=== PATIENT | female | born 1975 | race Caucasian/White ===

== ENCOUNTER 2020-07-23 14:14 | Emergency (ER) | payer MEDICAID ==
[2020-07-23] MEDS ORDERED: SODIUM CHLORIDE 0.9% 1,000 ML IV STA (14:46)
--- NOTE | 2020-07-23 14:55 | ED Physician Documentation ---
History of Present Illness - Stated complaint Stated Complaint: HIGH BLOOD SUGAR - Chief complaint Chief Complaint: General - History obtained from History obtained from: Patient - Additonal information Additional information: 44-year-old woman has been a type I diabetic since the age of 14. Only complications are neuropathy. She moved from [place] recently and does not have a doctor here yet. Has an appointment in 2 weeks. Her insulin pump ran out about 2 weeks ago and since then has been using short acting insulin only and because of that has had labile blood sugars with ketonuria and feels like she needs a long-acting insulin as well. Around noon today her blood sugar was in the 400s but in triage it was 198. She feels dehydrated. No other acute complaints. Review of Systems Ten Systems: 10 systems reviewed and negative Constitutional: reports: Fatigue : reports: Frequency PD PAST MEDICAL HISTORY - Present Medications Home Medications: Ambulatory Orders Medication Instructions Recorded Confirmed Acetaminophen [Tylenol] 500 mg PO TID 07/23/20 07/23/20 Alcohol Antiseptic Pads [Alcohol 1 each TP QID #120 med..pad 07/23/20 Swabs] Atorvastatin [Lipitor] 10 mg ORAL DAILY PM 07/23/20 07/23/20 Celecoxib [Celebrex] 200 mg PO BID 07/23/20 07/23/20 Cyclobenzaprine [Flexeril] 10 mg PO TID PRN 07/23/20 07/23/20 Gabapentin [Neurontin] 800 mg PO TID 07/23/20 07/23/20 Insulin Glargine [Lantus Solostar] 10 unit SQ BID #3 pen 07/23/20 Insulin Lispro 1 - 10 unit SQ ACHS #3 vial 07/23/20 Insulin Lispro 1 - 10 unit SQ TIDWM 07/23/20 07/23/20 Levothyroxine Sodium [Synthroid] 75 mcg PO DAILY 07/23/20 07/23/20 Losartan [Cozaar] 50 mg PO DAILY 07/23/20 07/23/20 Sumatriptan Succinate [Imitrex] 100 mg PO DAILY PRN 07/23/20 07/23/20 Syringe and Needle,Insulin,1Ml 1 each MC QID #120 disp.syrin 07/23/20 [Insulin Syringe] Tizanidine HCl [Zanaflex] 4 mg PO Q6HR PRN 07/23/20 07/23/20 - Allergies Allergies/Adverse Reactions: Allergies Allergy/AdvReac Type Severity Reaction Status Date / Time No Known Drug Allergies Allergy Verified 07/23/20 14:44 PD ED PE NORMAL - Vitals Vital signs reviewed: Yes - General General: Alert and oriented X 3, No acute distress - HEENT HEENT: PERRL, EOMI - Neck Neck: Supple, no meningeal sign - Derm Derm: Normal color, Warm and dry - Neuro Neuro: Alert and oriented X 3, No motor deficit, No sensory deficit, Normal speech Results - Vitals Vitals: Vital Signs - 24 hr 07/23/20 07/23/20 07/23/20 14:35 15:05 15:30 Temperature 36.9 C 36.4 C L Heart Rate 104 H 89 91 Respiratory 18 19 20 Rate Blood Pressure 115/95 H 110/61 122/78 O2 Saturation 96 98 100 Oxygen O2 Source Room air - Labs Labs: Laboratory Tests 07/23/20 07/23/20 07/23/20 14:45 14:58 14:58 WBC 7.6 RBC 3.80 L Hgb 12.2 Hct 36.4 L MCV 95.8 MCH 32.1 H MCHC 33.5 RDW 14.1 Plt Count 326 MPV 9.4 Neut # (Auto) 5.0 Lymph # (Auto) 2.2 [place] # (Auto) 0.3 Eos # (Auto) 0.1 Baso # (Auto) 0.0 Absolute Nucleated RBC 0.00 Nucleated RBC % 0.0 VBG pH VBG pCO2 VBG pO2 VBG HCO3 VBG Total CO2 VBG O2 Saturation VBG Base Excess Sodium 135 Potassium 3.8 Chloride 99 L Carbon Dioxide 22 Anion Gap 14.0 H BUN 10 Creatinine 0.7 Estimated GFR (MDRD) 90 Glucose 198 H POC Whole Bld Glucose 198 H Calcium 9.3 Total Bilirubin 0.6 AST 22 ALT 17 Alkaline Phosphatase 59 Total Protein 7.3 Albumin 3.9 Globulin 3.4 Albumin/Globulin Ratio 1.1 Lipase 17 L Urine Color Urine Clarity Urine pH Ur Specific [place] Urine Protein Urine Glucose (UA) Urine Ketones Urine Occult Blood Urine Nitrite Urine Bilirubin Urine Urobilinogen Ur Leukocyte Esterase Urine RBC Urine WBC Ur Squamous Epith Cells Urine Bacteria Ur Microscopic Review Urine Culture Comments Urine HCG, Qual Serum Ketones NEGATIVE 07/23/20 07/23/20 15:20 15:57 WBC RBC Hgb Hct MCV MCH MCHC RDW Plt Count MPV Neut # (Auto) Lymph # (Auto) [place] # (Auto) Eos # (Auto) Baso # (Auto) Absolute Nucleated RBC Nucleated RBC % VBG pH 7.343 VBG pCO2 40.3 L VBG pO2 29.1 VBG HCO3 21.4 L VBG Total CO2 22.6 L VBG O2 Saturation 59.7 L VBG Base Excess -4.0 L Sodium Potassium Chloride Carbon Dioxide Anion Gap BUN Creatinine Estimated GFR (MDRD) Glucose POC Whole Bld Glucose Calcium Total Bilirubin AST ALT Alkaline Phosphatase Total Protein Albumin Globulin Albumin/Globulin Ratio Lipase Urine Color YELLOW Urine Clarity CLEAR Urine pH 5.5 Ur Specific [place] <=1.005 Urine Protein NEGATIVE Urine Glucose (UA) 500 H Urine Ketones TRACE Urine Occult Blood LARGE H Urine Nitrite NEGATIVE Urine Bilirubin NEGATIVE Urine Urobilinogen 0.2 (NORMAL) Ur Leukocyte Esterase NEGATIVE Urine RBC 0-5 Urine WBC 0-3 Ur Squamous Epith Cells MANY Squamous H Urine Bacteria Few Ur Microscopic Review INDICATED Urine Culture Comments NOT INDICATED Urine HCG, Qual NEGATIVE Serum Ketones PD MEDICAL DECISION MAKING - ED course ED course: 44-year-old woman with known type 1 diabetes presents with hyperglycemia due to not having long-acting insulin. She was administered some IV fluids here. No evidence of DKA. She is prescribed Lantus. She already has short acting insulin. Departure - Departure Disposition: 01 Home, Self Care Clinical Impression: Uncontrolled diabetes mellitus Qualifiers: Diabetes mellitus type: type 1 Glycemic state: with hyperglycemia Qualified Code(s): E10.65 - Type 1 diabetes mellitus with hyperglycemia Condition: Good Record reviewed to determine appropriate education?: Yes Instructions: ED Hyperglycemia Diabetic Prescriptions: Alcohol Antiseptic Pads [Alcohol Swabs] 1 each TP QID #120 med..pad Insulin Lispro 1 - 10 unit SQ ACHS #3 vial Syringe and Needle,Insulin,1Ml [Insulin Syringe] 1 each MC QID #120 disp.syrin Insulin Glargine [Lantus Solostar] 10 unit SQ BID #3 pen Comments: No evidence of diabetic ketoacidosis today, start the Lantus at a low dose but you can increase it if you remain hyperglycemic. Return if worsening. Follow- up with your primary care physician in a couple of weeks as scheduled.
[2020-07-23 15:10] LABS: BASOPHILS % (AUTO) 0.4 %; EOSINOPHILS # (AUTO) 0.1 10^3/uL (0.0-0.7); EOSINOPHILS % (AUTO) 1.1 %; HGB - HEMOGLOBIN 12.2 g/dL (12.0-16.0); LYMPHOCYTES # (AUTO) 2.2 10^3/uL (1.5-3.5); LYMPHOCYTES % (AUTO) 28.8 %; MEAN CORPUSCULAR HEMOGLOBIN 32.1 pg (27.0-31.0); MEAN CORPUSCULAR HGB CONC 33.5 g/dL (32.0-36.0); MEAN CORPUSCULAR VOLUME 95.8 fL (81.0-99.0); MEAN PLATELET VOLUME 9.4 fL (7.9-10.8); MONOCYTES # (AUTO) 0.3 10^3/uL (0.0-1.0); MONOCYTES % (AUTO) 3.9 %; NEUTROPHILS % (AUTO) 65.5 %; PLT - PLATELET COUNT 326 10^3/uL (130-450); RED CELL DISTRIBUTION WIDTH 14.1 % (12.0-15.0); WHITE BLOOD COUNT 7.6 x10^3/uL (4.8-10.8)
[2020-07-23 15:22] LABS: ALBUMIN 3.9 g/dL (3.2-5.5); ALBUMIN/GLOBULIN RATIO 1.1 (1.0-2.2); ALKALINE PHOSPHATASE 59 IU/L (42-121); ALT ALANINE AMINOTRANSFERASE 17 IU/L (10-60); AST ASPARTATE AMINOTRANSFERASE 22 IU/L (10-42); BILIRUBIN,TOTAL 0.6 mg/dL (0.2-1.0); BUN - BLOOD UREA NITROGEN 10 mg/dL (6-20); CALCIUM 9.3 mg/dL (8.5-10.3); CARBON DIOXIDE - CO2 22 mmol/L (21-32); CHLORIDE 99 mmol/L (101-111); CREATININE 0.7 mg/dL (0.4-1.0); GLUCOSE 198 mg/dL (70-100); LIPASE 17 U/L (22-51); SODIUM 135 mmol/L (135-145); TOTAL PROTEIN 7.3 g/dL (6.7-8.2)
[2020-07-23 15:23] LABS: KETONES, SERUM (ACETEST) NEGATIVE (NEGATIVE)
[2020-07-23 15:29] LABS: BILIRUBIN,URINE NEGATIVE (NEGATIVE); GLUCOSE, URINE (UA) 500 mg/dL (NEGATIVE); KETONES,URINE (UA) TRACE mg/dL (NEGATIVE); LEUKOCYTE ESTERASE, URINE NEGATIVE (NEGATIVE); NITRITE,URINE NEGATIVE (NEGATIVE); OCCULT BLOOD,URINE LARGE (NEGATIVE); PH,URINE 5.5 PH (5.0-7.5); PROTEIN,URINE NEGATIVE (NEGATIVE); UROBILINOGEN,URINE 0.2 (NORMAL) E.U./dL (NORMAL)
[2020-07-23 15:30] LABS: CLARITY,URINE CLEAR (CLEAR)
[2020-07-23 15:31] LABS: HCG UR QUAL NEGATIVE
[2020-07-23 15:38] LABS: BACTERIA,URINE Few /HPF (None Seen); RBC,URINE 0-5 /HPF (0-5); SQUAMOUS EPITHELIAL CELL,UR MANY Squamous (<= Few)
[2020-07-23 16:03] LABS: VBG PCO2 40.3 mmHg (41-51); VBG PH 7.343 (7.31-7.41)
[2020-07-23 16:04] LABS: VBG PO2 29.1 mmHg (25-47); VBG TOTAL CO2 22.6 mmol/L (24-29)
[2020-07-23 16:16] VITALS: BP 119/61
== END 2020-07-23 16:17 | disposition home or self-care (01) ==
LOC: ED 14:14
DX: E10.40 Type 1 diabetes mellitus with diabetic neuropathy, unspecified (principal); E10.65 Type 1 diabetes mellitus with hyperglycemia; Z79.4 Long term (current) use of insulin
CPT/HCPCS: 36415; 80053; 81001; 81003; 81025; 82009; 82803; 83690; 85025; 87086; 96360; 99283

== ENCOUNTER 2020-09-22 08:43 | Emergency (ER) | payer MEDICAID ==
[2020-09-22] MEDS ORDERED: SODIUM CHLORIDE 0.9% 1,000 ML IV STA (09:12)
[2020-09-22 09:40] LABS: BASOPHILS % (AUTO) 0.4 %; EOSINOPHILS # (AUTO) 0.1 10^3/uL (0.0-0.7); EOSINOPHILS % (AUTO) 2.1 %; HGB - HEMOGLOBIN 11.7 g/dL (12.0-16.0); LYMPHOCYTES # (AUTO) 1.5 10^3/uL (1.5-3.5); LYMPHOCYTES % (AUTO) 30.3 %; MEAN CORPUSCULAR HGB CONC 32.7 g/dL (32.0-36.0); MEAN CORPUSCULAR VOLUME 94.7 fL (81.0-99.0); MEAN PLATELET VOLUME 9.5 fL (7.9-10.8); MONOCYTES # (AUTO) 0.2 10^3/uL (0.0-1.0); MONOCYTES % (AUTO) 4.1 %; NEUTROPHILS % (AUTO) 62.7 %; PLT - PLATELET COUNT 314 10^3/uL (130-450); RED BLOOD COUNT 3.78 10^6/uL (4.20-5.40); RED CELL DISTRIBUTION WIDTH 13.2 % (12.0-15.0); WHITE BLOOD COUNT 4.9 x10^3/uL (4.8-10.8)
[2020-09-22 09:54] LABS: ALBUMIN 4.1 g/dL (3.2-5.5); ALBUMIN/GLOBULIN RATIO 1.4 (1.0-2.2); BILIRUBIN,TOTAL 0.5 mg/dL (0.2-1.0); CALCIUM 9.2 mg/dL (8.5-10.3); CREATININE 0.7 mg/dL (0.4-1.0)
[2020-09-22] MEDS ORDERED: INSULIN REGULAR HUMAN 100 UNIT/1 ML 10 ML MDV SUBQ STA (10:59)
[2020-09-22] MEDS ORDERED: ACETAMINOPHEN 325 MG TABLET PO STA ×2 (11:00→11:41)
[2020-09-22 11:23] LABS: HEMOGLOBIN A1c% 7.4 % (4.27-6.07)
--- NOTE | 2020-09-22 11:44 | ED Physician Documentation ---
History of Present Illness - Stated complaint Stated Complaint: HIGH BLOOD SUGAR - Chief complaint Chief Complaint: General - History obtained from History obtained from: Patient - Additonal information Additional information: Patient comes the ED complaining of her blood sugar being elevated. She states that she has been off of her insulin pump for about the last for 5 months and is waiting for insurance to kick in so she get back on it. She states she takes both Lantus and regular insulin, with her Lantus being a twice daily dose and her regular insulin being done as a sliding scale, based on calculation of carbs eaten. She states that she was did have trouble with blood sugar control, which was why she was on the pump. She states that continuous infusion through the pump work much better than her spot dosing now. Patient denies any recent illness. She states she has felt nauseated with her sugar being high. She states her measurement at home was in the 300s. She states her fasting blood sugar is often around 200, though yesterday morning, it was 56. The patient just saw her primary care physician this past week and has seen her a couple of other times since going off the insulin pump. She states her doctor has not made any specific recommendations or changes to her insulin regimen. She does not know what her last hemoglobin A1c value was. No fever or chills. No cough. No other complaints at this time. Review of Systems Ten Systems: 10 systems reviewed and negative Constitutional: reports: Reviewed and negative Eyes: reports: Reviewed and negative Ears: reports: Reviewed and negative Nose: reports: Reviewed and negative Throat: reports: Reviewed and negative Cardiac: reports: Reviewed and negative Respiratory: reports: Reviewed and negative GI: reports: Nausea, Reviewed and negative : reports: Reviewed and negative Skin: reports: Reviewed and negative Musculoskeletal: reports: Reviewed and negative Neurologic: reports: Reviewed and negative Psychiatric: reports: Reviewed and negative Endocrine: reports: Reviewed and negative Immunocompromised: reports: Reviewed and negative PD PAST MEDICAL HISTORY - Past Medical History Cardiovascular: Hypertension Respiratory: None Neuro: Migraines, Peripheral neuropathy Endocrine/Autoimmune: Type 1 diabetes, HyPOthyroidism GI: None [employer] BOARDS: None : None HEENT: None Psych: Depression, Anxiety, ADD/ADHD Musculoskeletal: Osteoarthritis, Fibromyalgia, Rheumatoid arthritis, Chronic back pain, Other Derm: None Other Past Medical History: neuropathy - Past Surgical History Ortho: Spine surgery, Other - Present Medications Home Medications: Ambulatory Orders Medication Instructions Recorded Confirmed Acetaminophen [Tylenol] 1,000 mg PO TID 07/23/20 09/22/20 Alcohol Antiseptic Pads [Alcohol 1 each TP QID #120 med..pad 07/23/20 09/22/20 Swabs] Atorvastatin [Lipitor] 10 mg ORAL DAILY PM 07/23/20 09/22/20 Celecoxib [Celebrex] 200 mg PO BID 07/23/20 09/22/20 Cyclobenzaprine [Flexeril] 10 mg PO TID PRN 07/23/20 09/22/20 Gabapentin [Neurontin] 800 mg PO TID 07/23/20 09/22/20 Insulin Glargine [Lantus Solostar] 10 unit SQ BID #3 pen 07/23/20 09/22/20 Insulin Lispro 1 - 10 unit SQ ACHS #3 vial 07/23/20 09/22/20 Insulin Lispro 1 - 10 unit SQ TIDWM 07/23/20 09/22/20 Levothyroxine Sodium [Synthroid] 75 mcg PO DAILY 07/23/20 09/22/20 Losartan [Cozaar] 50 mg PO DAILY 07/23/20 09/22/20 Pen Needle, Diabetic, Safety 1 each MC BID #120 dis.needle 07/23/20 09/22/20 [Safety Pen Needle] Sumatriptan Succinate [Imitrex] 100 mg PO DAILY PRN 07/23/20 09/22/20 Syringe and Needle,Insulin,1Ml 1 each MC QID #120 disp.syrin 07/23/20 09/22/20 [Insulin Syringe] Tizanidine HCl [Zanaflex] 4 mg PO Q6HR PRN 07/23/20 09/22/20 Ondansetron Odt [Zofran] 4 mg TL Q6H PRN #10 tablet 09/22/20 - Allergies Allergies/Adverse Reactions: Allergies Allergy/AdvReac Type Severity Reaction Status Date / Time No Known Drug Allergies Allergy Verified 09/22/20 09:16 - Social History Does the pt smoke?: No Smoking Status: Never smoker Does the pt drink ETOH?: Yes Does the pt have substance abuse?: Yes - Immunizations Immunizations are current?: Yes - POLST Patient has POLST: No PD ED PE NORMAL - Vitals Vital signs reviewed: Yes - General General: Alert and oriented X 3, No acute distress - HEENT HEENT: Atraumatic, PERRL, EOMI, Moist mucous membranes - Neck Neck: Supple, no meningeal sign - Cardiac Cardiac: RRR, No murmur, Strong equal pulses - Respiratory Respiratory: No respiratory distress, Clear bilaterally - Abdomen Abdomen: Soft, Non tender, Non distended - Derm Derm: Normal color, Warm and dry, No rash - Extremities Extremities: No deformity, No edema, No calf tenderness / cord - Neuro Neuro: Alert and oriented X 3 - Psych Psych: Normal mood, Normal affect Results - Vitals Vitals: Oxygen O2 Source Room air - Labs Labs: Laboratory Tests 09/22/20 09/22/20 09/22/20 09:15 09:25 09:25 WBC 4.9 RBC 3.78 L Hgb 11.7 L Hct 35.8 L MCV 94.7 MCH 31.0 MCHC 32.7 RDW 13.2 Plt Count 314 MPV 9.5 Neut # (Auto) 3.0 Lymph # (Auto) 1.5 [place] # (Auto) 0.2 Eos # (Auto) 0.1 Baso # (Auto) 0.0 Absolute Nucleated RBC 0.00 Nucleated RBC % 0.0 Sodium 139 Potassium 4.3 Chloride 99 L Carbon Dioxide 26 Anion Gap 14.0 H BUN 8 Creatinine 0.7 Estimated GFR (MDRD) 90 Glucose 343 H POC Whole Bld Glucose 312 H Estimat Average Glucose Hemoglobin A1c % Calcium 9.2 Total Bilirubin 0.5 AST 28 ALT 17 Alkaline Phosphatase 38 L Total Protein 7.0 Albumin 4.1 Globulin 2.9 Albumin/Globulin Ratio 1.4 Lipase 17 L 09/22/20 09/22/20 09:25 12:06 WBC RBC Hgb Hct MCV MCH MCHC RDW Plt Count MPV Neut # (Auto) Lymph # (Auto) [place] # (Auto) Eos # (Auto) Baso # (Auto) Absolute Nucleated RBC Nucleated RBC % Sodium Potassium Chloride Carbon Dioxide Anion Gap BUN Creatinine Estimated GFR (MDRD) Glucose POC Whole Bld Glucose 339 H Estimat Average Glucose 166 H Hemoglobin A1c % 7.4 H Calcium Total Bilirubin AST ALT Alkaline Phosphatase Total Protein Albumin Globulin Albumin/Globulin Ratio Lipase PD MEDICAL DECISION MAKING - ED course Complexity details: reviewed old records, reviewed results, re-evaluated patient, considered differential, d/w patient ED course: The patient was found to have an elevated blood sugar of 343 on laboratory values, and hemoglobin A1c of 7.4, which correlated to an average blood sugar of 166. The patient had mentioned that she would like to be on a set sliding scale and not based on carbohydrates. I did print and give her an insulin sliding scale to use at home. She was given a subcutaneous dose of regular insulin 12 units here, and was beginning to improve with repeat blood sugar 30 minutes later. I felt the patient was stable for discharge home. I discussed with her that most likely, the insulin pump will be the most helpful for her, but that she should follow-up with her primary care physician within the next few weeks to make sure that the new insulin sliding scale is working better for her. If not, her primary care physician will need to discuss with her whether she should have an increase in her Lantus. I am reluctant to increase the Lantus here, due to the patient's hypoglycemic fasting blood sugar yesterday. We have discussed home management of symptoms, as well as the usual indications for return. Departure - Departure Disposition: 01 Home, Self Care Clinical Impression: Poorly controlled diabetes mellitus Condition: Stable Instructions: ED Hyperglycemia Diabetic Prescriptions: Ondansetron Odt [Zofran] 4 mg TL Q6H PRN #10 tablet PRN Reason: Nausea / Vomiting Comments: Your hemoglobin A1c is 7.4, which actually correlates with an average blood sugar of 166. You may use a set insulin sliding scale to help determine how much insulin to take when your blood sugar is elevated. You should be more cautious about this before bed, however, to ensure you do not drop too low at night. Please see the attached print out. Please continue to follow-up with your primary care physician to get back on the insulin pump, as this is probably the best option for diabetes control for you. Forms: Activity restrictions Discharge Date/Time: 09/22/20 12:30
[2020-09-22 12:01] VITALS: BP 126/75
== END 2020-09-22 12:30 | disposition home or self-care (01) ==
LOC: ED 08:43
DX: E10.65 Type 1 diabetes mellitus with hyperglycemia (principal); E10.42 Type 1 diabetes mellitus with diabetic polyneuropathy; Z79.4 Long term (current) use of insulin; I10 Essential (primary) hypertension
CPT/HCPCS: 36415; 80053; 83036; 83690; 85025; 96360; 99283; 99284; A9270; J1815

== ENCOUNTER 2021-01-31 06:08 | Emergency (ER) | payer BC, MEDICAID ==
[2021-01-31 06:22] VITALS: BP 154/96
[2021-01-31] MEDS ORDERED: CYCLOBENZAPRINE 10 MG TABLET PO STA (06:54)
--- NOTE | 2021-01-31 06:57 | ED Physician Documentation ---
PD HPI HEAD INJURY - Stated complaint Stated Complaint: HEADACHE/ITCHY - Chief complaint Chief Complaint: Neuro - History obtained from History obtained from: Patient - Additional information Additional information: 45-year-old woman with history of type 1 diabetes presents Requesting Flexeril prescription. She states, "I think I am going through withdrawal". Patient has been having frontal headache radiating to the left shoulder and neck, shooting, throbbing, aching, associated with generalized body aches, foot cramping, nausea, full body itchiness, and generalized malaise since last Saturday. She states that she ran out of her Flexeril and she cannot get into see her primary Dr. Hopper. When she calls the phone just has a busy signal. Patient denies fever/chills at home, abdominal pain, leg swelling. Review of Systems Constitutional: reports: Myalgias, Fatigue Cardiac: denies: Chest pain / pressure Respiratory: denies: Dyspnea GI: reports: Nausea PD PAST MEDICAL HISTORY - Past Medical History Past Medical History: Yes Cardiovascular: Hypertension Respiratory: None Neuro: Migraines, Peripheral neuropathy Endocrine/Autoimmune: Type 1 diabetes, HyPOthyroidism GI: None TRIAL EXAMINER: None : None HEENT: None Psych: Depression, Anxiety, ADD/ADHD Musculoskeletal: Osteoarthritis, Fibromyalgia, Rheumatoid arthritis, Chronic back pain, Other Derm: None - Past Surgical History Past Surgical History: Yes Ortho: Spine surgery, Other - Present Medications Home Medications: Ambulatory Orders Medication Instructions Recorded Confirmed Acetaminophen [Tylenol] 1,000 mg PO TID 07/23/20 09/22/20 Alcohol Antiseptic Pads [Alcohol 1 each TP QID #120 med..pad 07/23/20 09/22/20 Swabs] Atorvastatin [Lipitor] 10 mg ORAL DAILY PM 07/23/20 09/22/20 Celecoxib [Celebrex] 200 mg PO BID 07/23/20 09/22/20 Cyclobenzaprine [Flexeril] 10 mg PO TID PRN 07/23/20 09/22/20 Gabapentin [Neurontin] 800 mg PO TID 07/23/20 09/22/20 Insulin Glargine [Lantus Solostar] 10 unit SQ BID #3 pen 07/23/20 09/22/20 Insulin Lispro 1 - 10 unit SQ ACHS #3 vial 07/23/20 09/22/20 Insulin Lispro 1 - 10 unit SQ TIDWM 07/23/20 09/22/20 Levothyroxine Sodium [Synthroid] 75 mcg PO DAILY 07/23/20 09/22/20 Losartan [Cozaar] 50 mg PO DAILY 07/23/20 09/22/20 Pen Needle, Diabetic, Safety 1 each MC BID #120 dis.needle 07/23/20 09/22/20 [Safety Pen Needle] Sumatriptan Succinate [Imitrex] 100 mg PO DAILY PRN 07/23/20 09/22/20 Syringe and Needle,Insulin,1Ml 1 each MC QID #120 disp.syrin 07/23/20 09/22/20 [Insulin Syringe] Tizanidine HCl [Zanaflex] 4 mg PO Q6HR PRN 07/23/20 09/22/20 Ondansetron Odt [Zofran] 4 mg TL Q6H PRN #10 tablet 09/22/20 Cyclobenzaprine [Flexeril] 10 mg PO TID PRN #10 tablet 01/31/21 - Allergies Allergies/Adverse Reactions: Allergies Allergy/AdvReac Type Severity Reaction Status Date / Time No Known Drug Allergies Allergy Verified 01/31/21 06:27 - Social History Does the pt smoke?: No Smoking Status: Never smoker Does the pt drink ETOH?: Yes Does the pt have substance abuse?: Yes - Immunizations Immunizations are current?: Yes - POLST Patient has POLST: No PD ED PE NORMAL - Vitals Vital signs reviewed: Yes - General General: Alert and oriented X 3, No acute distress, Well developed/nourished - HEENT HEENT: Atraumatic, PERRL, EOMI - Neck Neck: Supple, no meningeal sign - Cardiac Cardiac: RRR - Respiratory Respiratory: No respiratory distress, Clear bilaterally - Abdomen Abdomen: Non tender, Non distended - Derm Derm: Normal color, Warm and dry - Extremities Extremities: No deformity - Neuro Neuro: Alert and oriented X 3 - Psych Psych: Normal mood, Normal affect Results - Vitals Vitals: Vital Signs - 24 hr 01/31/21 06:19 Temperature 36.5 C Heart Rate 96 Respiratory 18 Rate Blood Pressure 154/96 H O2 Saturation 100 Oxygen O2 Source Room air PD MEDICAL DECISION MAKING - ED course ED course: Patient declined headache treatment here in the emergency department, requesting to go home and rest. Education given about need for primary care follow-up in future for prescriptions for muscle relaxers. Since she is unable to get in with her primary doctor, I have provided a list of alternatives as well as [facility].The patient's son will drive her home.Return precautions given. Departure - Departure Disposition: Home, Self Care Clinical Impression: Body aches, Headache Condition: Good Instructions: Cyclobenzaprine tablets Follow-Up: MARIBELL SWANSON MD [Physician No Access] - Heather Velasco PA [Physician No Access] - Steven Weber MD [Physician No Access] - KEVIN NUNN PA-C [Provider Admit Priv/Credential] - Prescriptions: Cyclobenzaprine [Flexeril] 10 mg PO TID PRN #10 tablet PRN Reason: Spasms Comments: You are seen in the emergency department for medication refill and for headache. Please follow-up with your primary doctor this week. If you cannot get into see Dr. Hopper, you can follow-up at [facility]. I also am providing a couple of other options for primary doctors on your discharge paperwork. Return to the emergency department if you develop any new or worsening symptoms or have other concerns. [facility] [address] [facility] [address].
== END 2021-01-31 07:09 | disposition home or self-care (01) ==
LOC: ED 06:08
DX: R51.9 Headache, unspecified (principal); M79.10 Myalgia, unspecified site; T48.1X6A Underdosing of skeletal muscle relaxants [neuromuscular blocking agents], initial encounter; Z91.138 Patient's unintentional underdosing of medication regimen for other reason; I10 Essential (primary) hypertension; E10.42 Type 1 diabetes mellitus with diabetic polyneuropathy; Z79.4 Long term (current) use of insulin
CPT/HCPCS: 99282; 99283; A9270

== ENCOUNTER 2021-04-04 08:05 | Emergency (ER) | payer BC, MEDICAID ==
[2021-04-04 08:18] VITALS: BP 127/66
--- NOTE | 2021-04-04 08:27 | ED Physician Documentation ---
PD HPI URI - Stated complaint Stated Complaint: SOA,COUGHING,N/V/D - Chief complaint Chief Complaint: General - History obtained from History obtained from: Patient - History of Present Illness Timing - onset: How many days ago (4-5) Timing duration: Days (4-5) Timing details: Abrupt onset, Still present Associated symptoms: Chills, Dry cough, Chest pain, Dyspnea. No: Fever, Nasal congestion, Sore throat, NVD, Bilateral edema Contributing factors: No: Sick contact, Travel, Immunocompromised, COPD / asthma Improves by: No: Rest Worsened by: Activity Similar symptoms before: Diagnosis Recently seen: Not recently seen, Other (has had COVID vaccine few months ago.) Review of Systems Constitutional: reports: Chills, Myalgias. denies: Fever Nose: reports: Congestion. denies: Rhinorrhea / runny nose Throat: denies: Sore throat Cardiac: reports: Palpitations, Pedal edema. 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 : None HEENT: None Psych: Depression, Anxiety, ADD/ADHD Musculoskeletal: Osteoarthritis, Fibromyalgia, Rheumatoid arthritis, Chronic back pain, Other Derm: None - Past Surgical History Past Surgical History: Yes Ortho: Spine surgery, Other - Present Medications Home Medications: Ambulatory Orders Medication Instructions Recorded Confirmed Acetaminophen [Tylenol] 1,000 mg PO TID 07/23/20 09/22/20 Alcohol Antiseptic Pads [Alcohol 1 each TP QID #120 med..pad 07/23/20 09/22/20 Swabs] Atorvastatin [Lipitor] 10 mg ORAL DAILY PM 07/23/20 09/22/20 Celecoxib [Celebrex] 200 mg PO BID 07/23/20 09/22/20 Cyclobenzaprine [Flexeril] 10 mg PO TID PRN 07/23/20 09/22/20 Gabapentin [Neurontin] 800 mg PO TID 07/23/20 09/22/20 Insulin Glargine [Lantus Solostar] 10 unit SQ BID #3 pen 07/23/20 09/22/20 Insulin Lispro 1 - 10 unit SQ ACHS #3 vial 07/23/20 09/22/20 Insulin Lispro 1 - 10 unit SQ TIDWM 07/23/20 09/22/20 Levothyroxine Sodium [Synthroid] 75 mcg PO DAILY 07/23/20 09/22/20 Losartan [Cozaar] 50 mg PO DAILY 07/23/20 09/22/20 Pen Needle, Diabetic, Safety 1 each MC BID #120 dis.needle 07/23/20 09/22/20 [Safety Pen Needle] Sumatriptan Succinate [Imitrex] 100 mg PO DAILY PRN 07/23/20 09/22/20 Syringe and Needle,Insulin,1Ml 1 each MC QID #120 disp.syrin 07/23/20 09/22/20 [Insulin Syringe] Tizanidine HCl [Zanaflex] 4 mg PO Q6HR PRN 07/23/20 09/22/20 Ondansetron Odt [Zofran] 4 mg TL Q6H PRN #10 tablet 09/22/20 Cyclobenzaprine [Flexeril] 10 mg PO TID PRN #10 tablet 01/31/21 Albuterol Sulf [Ventolin Hfa 3 - 4 puffs INH Q4HR PRN #1 inhaler 04/04/21 Inhaler] Benzonatate [Tessalon] 100 mg PO TID PRN #20 cap 04/04/21 dexAMETHasone [Decadron] 4 mg PO DAILY #6 tablet 04/04/21 diphenhydrAMINE ELIXIR [Benadryl 25 mg PO Q6H PRN #240 ml 04/04/21 Elixir] - Allergies Allergies/Adverse Reactions: Allergies Allergy/AdvReac Type Severity Reaction Status Date / Time No Known Drug Allergies Allergy Verified 04/04/21 08:19 - Social History Does the pt smoke?: No Smoking Status: Never smoker Does the pt drink ETOH?: Yes Does the pt have substance abuse?: Yes - Immunizations Immunizations are current?: Yes - POLST Patient has POLST: No PD ED PE NORMAL - Vitals Vital signs reviewed: Yes - General General: Alert and oriented X 3, Well developed/nourished, Other (having repetitive coughing with harsh voice (almost croupy). ) - HEENT HEENT: Ears normal, Pharynx benign. No: Moist mucous membranes - Neck Neck: Supple, no meningeal sign, No adenopathy - Cardiac Cardiac: RRR, No murmur - Respiratory Respiratory: No respiratory distress, Other (some wheezing expiratory. No coarse sounds per se. ). No: Clear bilaterally - Abdomen Abdomen: Soft, Non tender - Back Back: No CVA TTP - Derm Derm: Normal color, Warm and dry - Extremities Extremities: No tenderness to palpate, Normal ROM s pain - Neuro Neuro: Alert and oriented X 3, grounds person 2-12 intact, No motor deficit, Normal speech Eye Opening: Spontaneous Results - Vitals Vitals: Oxygen O2 Source Room air - Labs Labs: Laboratory Tests 04/04/21 09:40 Coronavirus (PCR) NEGATIVE PD MEDICAL DECISION MAKING - ED course Complexity details: considered differential, d/w patient Departure - Departure Disposition: 01 Home, Self Care Clinical Impression: Cough Dyspnea Qualifiers: Dyspnea type: shortness of breath Qualified Code(s): R06.02 - Shortness of breath Upper respiratory infection Qualifiers: URI type: unspecified URI Qualified Code(s): J06.9 - Acute upper respiratory infection, unspecified Condition: Stable Instructions: ED Upper Resp Infec No Abx Tx Follow-Up: Annabelle Alatorre ARNP [Primary Care Provider] - Prescriptions: Albuterol Sulf [Ventolin Hfa Inhaler] 3 - 4 puffs INH Q4HR PRN #1 inhaler PRN Reason: Shortness Of Air/Wheezing diphenhydrAMINE ELIXIR [Benadryl Elixir] 25 mg PO Q6H PRN #240 ml PRN Reason: Cough dexAMETHasone [Decadron] 4 mg PO DAILY #6 tablet Benzonatate [Tessalon] 100 mg PO TID PRN #20 cap PRN Reason: Cough Comments: Your test will result tomorrow. It is reasonably unlikely that you have this given you were immunized. Other viral illnesses can occur however. Use the albuterol inhaler 3 to 4 puffs 4 times a day regularly for the next several days to week. Add Tessalon if needed for cough and Benadryl liquid for sore throat or cough. If not improving well in the next day or so, you will likely benefit from adding a low-dose steroid dexamethasone. This will affect your sugars so you will need to adjust your insulin and such. Recheck if not improved well over the next several days and return if worsening. Chest x-ray did not show any signs of pneumonia. Discharge Date/Time: 04/04/21 12:32
[2021-04-04] MEDS ORDERED: ALBUTEROL NEB 2.5 MG/3 ML INH STA ×2 (08:57→10:15)
[2021-04-04] MEDS ORDERED: BENZONATATE 100 MG CAPSULE PO STA (08:57)
[2021-04-04] MEDS ORDERED: diphenhydrAMINE ELIXIR 25 MG/10 ML UDC PO STA (08:57)
--- NOTE | 2021-04-04 09:24 | XRAY Report ---
PROCEDURE: Chest 1 View X-Ray INDICATIONS: cough and wheeze TECHNIQUE: One view of the chest was acquired. COMPARISON: None. FINDINGS: Surgical changes and devices: None. Lungs and pleura: No pleural effusions or pneumothorax. Lungs are clear. Mediastinum: Mediastinal contours appear normal. Heart size is normal. Bones and chest wall: No suspicious bony lesions. Overlying soft tissues appear unremarkable. IMPRESSION: Chest without acute cardiopulmonary abnormalities. No focal airspace disease. Reviewed by: Sawyer Agarwal MD on 04/04/2021 9:23 AM PDT Approved by: Sawyer Agarwal MD on 04/04/2021 9:23 AM PDT Station ID: [id number]
== END 2021-04-04 12:32 | disposition home or self-care (01) ==
LOC: ED 08:05
DX: J06.9 Acute upper respiratory infection, unspecified (principal); I10 Essential (primary) hypertension; E10.42 Type 1 diabetes mellitus with diabetic polyneuropathy; Z79.4 Long term (current) use of insulin
CPT/HCPCS: 71045; 87635; 94640; 99283; 99284; A9270

== ENCOUNTER 2021-10-16 08:00 | Outpatient (CLI) | payer BC, MEDICAID ==
--- NOTE | 2021-10-17 08:48 | XRAY Report ---
PROCEDURE: Shoulder 3 View RT INDICATIONS: PAIN IN RIGHT SHOULDER TECHNIQUE: 3 views of the shoulder were acquired. COMPARISON: None. FINDINGS: BONES: No acute, displaced fracture. The joint spaces are maintained. Mild arthrosis of the AC joint . SOFT TISSUES: No focal abnormality or appreciable pneumothorax. IMPRESSION: 1.No acute osseous abnormality. Reviewed by: Farhan Miller MD on 10/17/2021 8:46 AM [facility] Approved by: Farhan Miller MD on 10/17/2021 8:46 AM [facility] Station ID: [id number]
--- NOTE | 2021-10-17 08:49 | XRAY Report ---
PROCEDURE: Hand 3 View RT INDICATIONS: JOINT PAIN IN RIGHT HAND TECHNIQUE: 3 views of the hand(s) acquired. COMPARISON: None. FINDINGS: BONES: No acute, displaced fracture or dislocation. The carpal bones are normally aligned. SOFT TISSUES: No focal abnormality. IMPRESSION: 1.No acute osseous abnormality. Reviewed by: Farhan Miller MD on 10/17/2021 8:47 AM [facility] Approved by: Farhan Miller MD on 10/17/2021 8:47 AM [facility] Station ID: [id number]
== END 2021-10-16 23:59 | disposition home or self-care (01) ==
LOC: DI.S 08:00
PROVIDERS: ATTEND Registered Nurse
DX: M25.541 Pain in joints of right hand (principal); M25.511 Pain in right shoulder

== ENCOUNTER 2021-12-23 10:23 | Outpatient (CLI) | payer BC, MEDICAID ==
[2021-12-23 10:53] LABS: BUN - BLOOD UREA NITROGEN 12 mg/dL (6-20); CALCIUM 9.1 mg/dL (8.5-10.3); CARBON DIOXIDE - CO2 25 mmol/L (21-32); CHLORIDE 102 mmol/L (101-111); CHOL/HDL RATIO 2.3 (<4.4); CHOLESTEROL 198 mg/dL; CREATININE 0.7 mg/dL (0.4-1.0); CREATININE,URINE 32.4 mg/dL; GFR - MDRD 90 (>89); GLUCOSE 178 mg/dL (70-100); HDL CHOLESTEROL 88 mg/dL; POTASSIUM 4.2 mmol/L (3.5-5.0); SODIUM 136 mmol/L (135-145); TRIGLYCERIDES 34 mg/dL
[2021-12-23 10:54] LABS: MICROALBUMIN,URINE < 0.2 mg/dL (0-300.0)
[2021-12-23 11:16] LABS: ESTIMATED AVERAGE GLUCOSE 160 mg/dL (70-100); HEMOGLOBIN A1c% 7.2 % (4.27-6.07)
== END 2021-12-23 10:24 | disposition home or self-care (01) ==
LOC: LAB 10:23
PROVIDERS: ATTEND Nurse Practitioner
DX: E10.65 Type 1 diabetes mellitus with hyperglycemia (principal)
CPT/HCPCS: 36415; 80048; 80061; 82043; 82570; 83036; 83721